=== PATIENT | male | born 1960 | race Caucasian/White ===

== ENCOUNTER 2020-04-29 07:32 | Emergency (ER) | payer SELFPAY ==
[2020-04-29] MEDS ORDERED: DOXYCYCLINE HYCLATE 100 MG TABLET PO ONE (11:59)
[2020-04-29] MEDS ORDERED: OXYCODONE-ACETAMINOPHEN 5-325 MG TABLET PO ONE (11:59)
--- NOTE | 2020-04-29 13:27 | ER Document Report ---
Entered by TOM CASON SCRIBE 04/29/20 1142 Acting as scribe for:MICKEY HOUSTON MD ED General - General Chief Complaint: Facial Swelling Stated Complaint: HEAD PAIN/EYE SWELLING Mode of Arrival: Ambulatory Information source: Patient Notes: This 59 year old male patient presents to the ED today with complaints of swelling to the forehead left upper eyelid. Patient states that the eyelid swelling/pain started x2 weeks ago and the swelling in between his eyebrows has been intermittent in nature for about a year. He He reports that his symptoms were related to his sinuses, so he has been taking Sudafed. He reports a history of right macular degeneration, but denies any vision problems to his left eye. - Related Data Allergies/Adverse Reactions: No Known Allergies Allergy (Verified 04/29/20 08:49) Home Medications: sudafed max not daily Past Medical History - Social History Smoking Status: Current Every Day Smoker Cigarette use (# per day): Yes - 0.5 ppd Chew tobacco use (# tins/day): No Frequency of alcohol use: None Drug Abuse: None Family History: Reviewed & Not Pertinent Patient has suicidal ideation: No Patient has homicidal ideation: No EENT Medical History: Reports: Eyes - Macular Degeneration, right eye Past Surgical History: Reports: Hx Inguinal Hernia - bilateral, Hx Orthopedic Surgery - Left knee Review of Systems - Review of Systems Constitutional: No symptoms reported EENT: See HPI Cardiovascular: No symptoms reported Respiratory: No symptoms reported Gastrointestinal: No symptoms reported Genitourinary: No symptoms reported Male Genitourinary: No symptoms reported Musculoskeletal: No symptoms reported Skin: See HPI Hematologic/Lymphatic: No symptoms reported Neurological/Psychological: No symptoms reported -: Yes All other systems reviewed and negative Physical Exam - Vital signs Vitals: Temp Pulse BP Pulse Ox 98.2 F 67 155/90 H 98 04/29/20 08:12 04/29/20 08:12 04/29/20 08:12 04/29/20 08:12 - General General appearance: Alert In distress: None - Respiratory Respiratory status: No respiratory distress Chest status: Nontender Breath sounds: Normal Chest palpation: Normal - Cardiovascular Rhythm: Regular Heart sounds: Normal auscultation Murmur: No Friction rub: No Gallop: None auscultated - Abdominal Inspection: Normal Distension: No distension Bowel sounds: Normal Tenderness: Nontender - Abdomen soft Organomegaly: No organomegaly - Back Back: Normal, Nontender - Extremities General upper extremity: Normal inspection General lower extremity: Normal inspection. No: Edema - Neurological Neuro grossly intact: Yes Orientation: AAOx4 [place] Coma Scale Eye Opening: Spontaneous [place] Coma Scale Verbal: Oriented [place] Coma Scale Motor: Obeys Commands [place] Coma Scale Total: 15 - Psychological Associated symptoms: Normal affect, Normal mood - Skin Skin Temperature: Warm Skin Moisture: Dry Skin Color: Normal Course - Vital Signs Vital signs: Temp Pulse Resp BP Pulse Ox 98.2 F 67 155/90 H 98 04/29/20 08:50 04/29/20 08:12 04/29/20 08:12 04/29/20 08:12 Discharge - Discharge Clinical Impression: Cellulitis of face Condition: Stable Disposition: HOME, SELF-CARE Additional Instructions: Cellulitis: You have an infection of your skin and underlying soft tissues called cellulitis. This is due to bacteria, which can enter through any break in the skin, or even through an irritated hair follicle. Untreated, cellulitis will usually worsen. Antibiotics are required. Usually, warm packs or warm soaks, and elevation of the infected area are recommended. You should start getting better within 24 to 36 hours. Most infections respond quickly to the right medication. Follow-up care is important, however, to check for abscess (boil) formation, unsuspected foreign body, or resistant infection. If you develop fever, chills, or if the area of infection is becoming rapidly more swollen or painful, call the doctor at once. The swelling in your forehead and left upper eyelid appears to be due to ce llulitis. Take the medications as prescribed. Use warm soaks or moist heat to the painful swollen area. Return to the emergency room tomorrow morning about 9 AM to let me take a quick look and see if you need to be checked in for further testing and treatment, or if we will be able to continue on the current medications. RETURN TO THE EMERGENCY ROOM IF ANY NEW OR WORSENING SYMPTOMS. Prescriptions: Doxycycline Hyclate 100 mg PO BID #20 tablet. Oxycodone HCl/Acetaminophen [Percocet 5-325 mg Tablet] 1 tab PO ASDIR PRN #10 tablet PRN Reason: Forms: Return to Work I personally performed the services described in the documentation, reviewed and edited the documentation which was dictated to the scribe in my presence, and it accurately records my words and actions.
[2020-04-29 13:35] VITALS: BP 153/95
== END 2020-04-29 13:27 | disposition home or self-care (01) ==
LOC: ER 07:32
DX: L03.211 Cellulitis of face (principal); F17.210 Nicotine dependence, cigarettes, uncomplicated
CPT/HCPCS: 99284